=== PATIENT | female | born 1965 | race Caucasian/White ===

== ENCOUNTER 2024-04-04 18:29 | Emergency (ER) | payer OTHER, SELFPAY ==
[2024-04-04 18:29] VITALS: BMI 26.3
[2024-04-04 18:33] VITALS: BP 168/94
[2024-04-04 18:56] LABS: % Basophils 0.7 % (0-2); % Eosinophils 0.3 % (0-6); % Immature Granulocytes 0.1 % (0-0.5); % Lymphocytes 24.3 % (20.5-51.1); % Monocytes 5.2 % (1.7-9.3); % Neutrophils 69.4 % (42.2-75.2); Absolute Basophils 0.1 10^3/uL (0-0.2); Absolute Lymphocytes 2.1 10^3/uL (1.2-3.4); Absolute Monocytes 0.5 10^3/uL (0.1-0.6); Absolute Neutrophils 6.1 10^3/uL (1.4-6.5); Hematocrit 40.5 % (37.0-47.0); Hemoglobin 14.2 g/dL (12.0-16.0); Mean Corp Hgb Conc. 35.1 g/dL (33.0-37.0); Mean Corpuscular Hgb 29.1 pg (27.0-31.0); Mean Platelet Volume 8.3 fL (7.4-10.4); Nucleated Red Blood Cells % 0 %; Platelet Count 277 10^3/uL (130-400); Red Blood Cell Count 4.88 10^6/uL (4.20-5.40); Red Cell Dist. Width 11.9 % (11.5-14.5); White Blood Cell Count 8.7 10^3/uL (4.8-10.8)
[2024-04-04 19:16] LABS: ALT (SGPT) 24 U/L (0-35); AST (SGOT) 32 U/L (14-36); Albumin 4.9 g/dl (3.5-5.0); Alkaline Phosphatase 84 U/L (38-126); Blood Urea Nitrogen 15 mg/dl (7-17); Calcium 9.9 mg/dl (8.4-10.2); Carbon Dioxide 26 mmol/L (22-30); Chloride 102 mmol/L (98-107); Glucose 181 mg/dl (70-99); Potassium 3.7 mmol/L (3.5-5.1); Sodium 138 mmol/L (135-145); Total Bilirubin 0.5 mg/dl (0.2-1.3); Total Protein 7.6 g/dl (6.3-8.2); eGFR > 60.00
[2024-04-04 19:22] LABS: Troponin I < 0.012 ng/ml
[2024-04-04 19:49] VITALS: BP 144/92
[2024-04-04 20:00] VITALS: BP 140/76
--- NOTE | 2024-04-04 20:34 | ED.GENMED ---
History of Present Illness
General
Chief Complaint: Chest Pain
Source: patient
Exam Limitations: none
Time Seen by Provider: 04/04/24 19:54
Travel History
Have you had any contact with someone who has COVID-19?: No
Do you have any symptoms of coronavirus? Fever > 100 degrees, chills, cough, shortness of breath, sore throat, loss of taste or smell, muscle aches, or headache?: No
History of Present Illness
History of Present Illness:
This is a 58 year old female that comes in with c/o chest pain. States that on Sunday she had a good workout as she normally does. States that she went home and just was not feeling good. States that she didn't eat dinner. States that she also ran
3 miles. States that she then started with this chest pain and burping that she thought was indigestion. States that it did get better. Since that time she has been SOB when going up the steps and her heart rate was 130 with the chest pain. States
that she feels like her heart is working hard to pump out the blood. Sates that this is similar to her 2007 when she had a stent placed. States that occasionally this pain goes into her arm. States that she took an Extra Metoprolol on due
to this feeling of her heart beating so fast. States that she also ran out of her Plavix a week ago and missed this for a week but know is back on. States that she was also lightheaded. Denies any fever, chills, abd pain, nausea, vomiting, diarrhea,
headache, urinary burning.
Past History
Past History
ED Past Medical History: CAD, HTN and Other (Headache, )
ED Past Surgical History: Cardiac (Stent), , Gynecological (D&C), Tonsilectomy and Other (Plastic surgery on bottom lip and nose, right breast lumpectomy)
Social History
Tobacco: Non-smoker
Alcohol: None
Personal: Single
Living: alone
Review of Systems
Review of Systems
All Other Systems: ROS reviewed and negative except as documented in HPI and ROS
Constitutional: Reports no symptoms; Denies fever or chills
EENT: Reports no symptoms
Respiratory: Reports trouble breathing; Denies cough
Cardiac: Reports chest pain
ABD/GI: Reports no symptoms; Denies abdominal pain, nausea, vomiting or diarrhea
: Reports no symptoms; Denies dysuria, frequency or urgency
Musculoskeletal: Reports no symptoms
Skin: Reports no symptoms
Neurological: Reports other (Lightheaded); Denies dizzy or headache
Psychiatric: Reports no symptoms
Phy Exam
General Physical Exam
General Presentation: mild distress
General age: appears stated age
General Skin: warm and dry
General Habitus: normal
General Mental: anxious
General Hydration: appears well hydrated
ENT Exam
ENT Exam: TM's normal, pharynx normal and neck supple
Eye Exam
Eye Exam: EOMI
Cardiovascular Exam
Cardiovascular Exam: regular rate/rhythm, no edema, no murmur and normal peripheral pulses
Pulmonary Exam
Pulmonary Exam: lungs clear, no respiratory distress, no rales, chest non tender, no crackles, no rhonchi, no wheezing and no cough
Gastrointestinal Exam
Gastrointestinal Exam: normal bowel sounds, non tender, soft, no organomegaly, no pulsatile mass and non distended
Musculoskeletal Exam
Musculoskeletal Exam: full ROM and no edema
Skin Exam
Skin Exam: normal color, warm/dry, no rash and no petechia
Psychiatric Exam
Psychiatric Exam: normal mood/affect
Scores
Heart Score for Chest Pain Patients
STEMI patient?: No
History: Slightly or Non-Suspicious
ECG: Normal
Age: >45 - <65 years
Risk Factors: >/= 3 Risk Factors or History of CAD
Troponin: </= Normal Limit
Heart Score for Chest Pain Patients: 3
Heart Score Risk: 2.5% MACE over next 6 weeks
Course
Orders/Labs/Results
Orders:
Orders
04/04/24 18:31
ECG [Electrocardiogram (*1)] Urgent
Reason for Study: Chest Pain
EKG- Treatment ONCE
04/04/24 18:50
Complete Blood Count/With Diff Urgent
Comprehensive Metabolic Panel Urgent
Troponin I Urgent
04/04/24 20:33
EKG- Treatment ONCE
04/04/24 20:34
Pantoprazole [Protonix IV] 40 mg IV NOW STA
Sucralfate Suspension [Carafate Suspension] 1 gm PO NOW STA
04/04/24 20:43
CR Chest - 2 Views Urgent
Comment:
Reason For Exam: Chest pain, SOB
04/04/24 21:04
D-Dimer Urgent
04/04/24 21:50
Electrocardiogram (*1) Urgent
Reason for Study: Chest Pain
Other Reason for Exam: Repeat with Troponin
04/04/24 22:07
Troponin I Urgent
Abnormal Lab Results
04/04/24
18:50
Glucose 181 H mg/dl
(70-99)
04/04/24 18:50
04/04/24 18:50
Glucose nonfasting. Troponin <0.012
Vital Signs
Initial and Last Documented VS:
Initial Vital Signs
Temp Pulse Resp BP Pulse Ox
99.3 F 72 16 168/94 97
04/04/24 18:33 04/04/24 18:33 04/04/24 18:33 04/04/24 18:33 04/04/24 18:33
Last Documented Vital Signs
Temp Pulse Resp BP Pulse Ox
99.3 F 59 15 148/91 96
04/04/24 18:33 04/04/24 22:15 04/04/24 22:15 04/04/24 22:00 04/04/24 22:15
MDM/Problems Addressed
Differential Diagnosis Includes:
GERD, Coronary syndrome, PE
MDM/Problems Addressed:
This is a 58 year old female that comes in with c/o chest pain and feeling like her heart is beating fast and hard to pump out the blood. States that this started on Sunday and has continued to get worse. States that she feels like she did in 2007
when she needed a stent.
Will get labs chest X-ray, and medicate for reflux.
Back into see patient. States that her discomfort comes and goes. Will talk with [facility] to see if they would like patient on the Cardiology hot line or to admit for further evaluation.
Spoke with Dr. Lorenzo and patient can follow up in the office on Sunday. Patient to return with increased or changing pain. Will also place patient on Protonix to help with any reflux.
Chronic conditions affecting care: CAD
Acute Exacerbation and/or Progression of Chronic Illness: CAD
*Pulse Oximetry
Patient hypoxic: no
*EKG
Interpreted by ED Provider?: Yes
Heart Rate: 70
Rate: normal
Rhythm: sinus
[place]: normal axis
Interval: normal interval
QRS Pattern: normal QRS
Ischemia: no ischemia
*Estate Planning Attorney Interpretation
Rate: normal
Heart Rate: 71
Rhythm: sinus
*Critical Care Note
Total Time (30-74mins, 75-104mins- exclusive of procedures): Not Applicable
ED Attending Note
-
Portions of this chart may have been created with voice recognition software.� Occasional wrong word or��sound alike� substitutions may have occurred due to the inherent limitations of voice recognition software.
Discharge Plan
Departure
Patient Disposition: Home (Routine Discharge)
Date of Disposition: 04/04/24
Time of Disposition: 23:33
Patient with high blood pressure during this ER visit?: Yes
Condition: Good
Covid-19: Not Applicable
Discharge Problem:
Chest pain
Instructions: Chest pain, Chest Pain CBC Follow Up, BLOOD PRESSURE
Prescriptions:
New
pantoprazole [Protonix] 40 mg tablet,delayed release (DR/EC)
40 mg PO DAILY Qty: 15 0RF
Referrals:
Anyi Fierro MD [Family Provider] - Call in 1-3 days for appt
Activity Restrictions/Additional Instructions:
As discussed, your blood work is normal along with your D-dimer. Your chest x-ray is normal. You have been place on the Cardiology hot line. This means that the [facility] office will contact you on the next business day. You have also been given
a prescription for Protonix that will help with any reflux. IF YOU HAVE INCREASED OR CHANGING PAIN, OR YOU HAVE ANY OTHER CONCERNS PLEASE RETURN TO THE EMERGENCY ROOM.
Interventions
Interventions:
ED- Cardiac Assessment Last Done: 04/04/24 20:18
Discharge Date and Time
Print Language: RUSSIAN
[2024-04-04 21:05] VITALS: BP 140/93
[2024-04-04] MEDS: PROTONIX IV 40 MG IV (21:09)
[2024-04-04] MEDS: CARAFATE SUSPENSION 1 GM PO (21:10)
[2024-04-04 21:41] LABS: D-Dimer 0.47 ug/mlFEU (0.00-0.50)
[2024-04-04 22:00] VITALS: BP 148/91
[2024-04-04 22:40] LABS: Troponin I < 0.012 ng/ml
== END 2024-04-05 00:10 | disposition home or self-care (01) ==
LOC: EMR 18:29
PROVIDERS: Clinical Nurse Specialist Family Health; Emergency Medicine; EMERGENCY PHYSICIAN Emergency Medicine; FAMILY PHYSICIAN Family Medicine
DX: R07.89 Other chest pain (principal); R42 Dizziness and giddiness; R06.02 Shortness of breath; R00.2 Palpitations; M79.603 Pain in arm, unspecified; I25.10 Atherosclerotic heart disease of native coronary artery without angina pectoris; I10 Essential (primary) hypertension; Z91.148 Patient's other noncompliance with medication regimen for other reason; Z95.5 Presence of coronary angioplasty implant and graft; Z88.0 Allergy status to penicillin; Z88.8 Allergy status to other drugs, medicaments and biological substances
CPT/HCPCS: 99284; 96374; 71046; 80053; 84484; 85025; 85379; 93005